=== PATIENT | female | born 1985 | race Caucasian/White ===

== ENCOUNTER 2020-06-19 11:33 | Emergency (ER) | payer BC, SELFPAY ==
[~2020-06-19] VITALS: Ht 154.9 cm; Wt 113.9 kg
[2020-06-19 11:35] VITALS: Ht 154.9 cm; Wt 113.9 kg
[2020-06-19 12:38] VITALS: BP 133/90
== END 2020-06-19 12:38 | disposition home or self-care (01) ==
LOC: ED 11:33
DX: B34.9 Viral infection, unspecified (principal); Z20.828 Contact with and (suspected) exposure to other viral communicable diseases
CPT/HCPCS: U0003-CS